=== PATIENT | male | born 1960 | race Caucasian/White ===

== ENCOUNTER 2025-01-23 16:19 | Outpatient (CLI) | payer MEDICARE, SELFPAY ==
--- NOTE | 2025-01-23 16:26 | CT_ITS ---
WS: [id number] CT NECK WITH CONTRAST HISTORY: NEOPLASM OF UNCERTAIN BEHAVIOR OF TONGUE TECHNIQUE: Contiguous 2 mm axial images are performed through the neck with intravenous contrast. Sagittal and coronal reformats are also submitted. All CT scans at [facility] use at least one of these dose optimization techniques: automated exposure control; mA and/or kV adjustment per patient size (includes targeted exams where dose is matched to clinical indication); or iterative reconstruction. CONTRAST: CONTRAST: Omnipaque 350; 100 mL IV. DLP: 200.26 mGy.cm COMPARISON: None available. There is no obvious area of abnormal enhancement involving the tongue noted by CT. There is a very subtle area of enhancement in the floor the mouth on the LEFT closely associated with the LEFT molars. There is mild enhancement. No obvious mass or mass effect. Nasopharynx, oropharynx, hypopharynx and larynx are unremarkable. No soft tissue masses or abnormal enhancement. Torus tubarius and fossa of Rosenmuller and parapharyngeal fat are normal. No adenopathy identified. There are small bilateral cervical chain lymph nodes. Thyroid gland and salivary glands are normally enhancing with no masses. No osseous abnormalities. Visualized portions of the skull base demonstrate no abnormalities. Orbits and globes are within normal limits. No soft tissue masses. Visualized paranasal sinuses and mastoid air cells are normal. Lung apices are clear. Cervical spine facet joint arthropathy and osteophytic ridging resulting in central and foraminal stenosis at several levels. Cervical carotid artery calcifications. Less than 50% stenosis at the bifurcations. CT/CT neck w con* [id number] IMPRESSION: 1. No tongue mass is identified by CT. 2. Subtle area of hyperemia in the LEFT floor of the mouth which is very nonsp ecific. No associated mass identified. 3. No cervical chain pathologically enlarged lymph nodes.
--- NOTE | 2025-01-23 16:26 | XRR_ITS ---
PROCEDURE INFORMATION: Exam: XR Chest Exam date and time: 01/23/2025 4:35 PM Age: 64 years old Clinical indication: Pre-operative exam; Cardiovascular screening and respiratory screening exam; Pre-op for tongue cancer removal. 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 Views: 2 views. COMPARISON: No relevant prior studies available. FINDINGS: Lungs: Bilateral bullous emphysema with hyperinflation of the lungs and scattered pulmonary scarring. Otherwise, unremarkable. Pleural spaces: Unremarkable. No pleural effusion. No pneumothorax. Heart/Mediastinum: Unremarkable. No cardiomegaly. Bones/joints: Mild scoliosis and multilevel spondylosis. Otherwise, unremarkable. XR/XR chest 2V* [id number] IMPRESSION: 1. Bilateral bullous emphysema with hyperinflation of the lungs and scattered pulmonary scarring. 2. No superimposed acute disease.
[2025-01-23 17:03] LABS: Blood Urea Nitrogen 11 mg/dL (8-23)
[2025-01-23] MEDS: iohexol 350 mg/mL 500 mL Btl (per mL) IV (17:23)
== END 2025-01-23 16:20 | disposition home or self-care (01) ==
LOC: RAD 16:22
PROVIDERS: Visit Provider Specialist
DX: Z01.818 Encounter for other preprocedural examination (principal); C02.9 Malignant neoplasm of tongue, unspecified; J43.9 Emphysema, unspecified; M41.9 Scoliosis, unspecified; M47.819 Spondylosis without myelopathy or radiculopathy, site unspecified
CPT/HCPCS: 70491; 71046; 82565; 84520